=== PATIENT | female | born 1990 | race Caucasian/White ===

== ENCOUNTER 2018-05-13 12:21 | Emergency (ER) | payer OTHER ==
[~2018-05-13] VITALS: Ht 170.1 cm; Wt 67.1 kg
[~2018-05-13 12:21] MED LIST: ANAPROX DS550 MG PO; ATIVAN0.5 MG PO; ATIVAN1 MG PO; BACTRIM PED152.22 ML PO; CIPRO500 MG PO; CIPROFLOXACIN500 MG PO; CLINDAMYCIN HC300 MG PO; FLINTSTONES1 CTB PO; FURADANTIN25 MG/5 ML PO; MOTRIN CHI100 MG/5 M PO; MOTRIN CHI100 MG/51 PO; MOTRIN800 MG PO; Miralax Powder255 GM PO; Motrin,Rufen800 MG PO; NKHM; PRENATAL1 TA2 PO; TYLENOL W/CODE480 ML PO; VICODIN 5/500 505 MG PO; ZANTAC 150150 MG PO; ZANTAC15 MG/ML PO; ZOFRAN ODT4 MG SL; ZOFRAN4 MG PO; ZOLOFT50 MG PO; Zofran4 MG PO; [UNRECOGNIZED DRUG - CODE] PO; [UNRECOGNIZED DRUG - OTHER] PO
[2018-05-13 12:40] LABS: BILIRUBIN 1+ (NEGATIVE); BLOOD TRACE-INTACT (NEGATIVE); CLARITY SL CLOUDY (CLEAR); COLOR YELLOW (YELLOW); GLUCOSE NEGATIVE (NEGATIVE); KETONE NEGATIVE (NEGATIVE); LEUKO ESTERASE TRACE (NEGATIVE); NITRITE NEGATIVE (NEGATIVE); SPECIFIC GRAVITY 1.025 (1.005-1.030)
[2018-05-13 12:55] LABS: BACTERIA 1+; EPITHELIAL CELLS 21-30; MUCOUS 1+; WBC 16-20 wbc/hpf (0-5)
[2018-05-13 13:05] LABS: BASO % 0.3 % (0.0-1.0); EOS # 0.2 10*3/uL (0.0-0.4); EOS % 3.2 % (1.0-4.0); HEMOGLOBIN 14.7 g/dl (12.0-16.0); LYMPH # 1.6 10*3/uL (1.3-4.4); LYMPH % 27.1 % (27.0-41.0); MEAN CELL VOLUME 87.7 fl (81.0-99.0); MEAN CORPUSCULAR HGB 28.7 pg (27.0-31.0); MEAN CORPUSCULAR HGB CONC 32.7 g/dl (33.0-37.0); MEAN PLATELET VOLUME 10.4 fl (9.6-12.3); MONO # 0.4 10*3/uL (0.1-1.0); MONO % 6.6 % (3.0-9.0); NEUT # 3.7 10*3/uL (2.3-7.9); NEUT % 62.6 % (47.0-73.0); PLATELET COUNT AUTOMATED 165 10*3/uL (130-400); RED BLOOD COUNT 5.13 10*6/uL (4.10-5.10); RED CELL DISTRI WIDTH 12.3 % (0-14.5)
[2018-05-13 13:21] LABS: ALBUMIN 4.5 gm/dl (3.1-4.5); ALKALINE PHOSPHATASE 85 U/L (45-117); BUN 7 mg/dl (7-24); CHLORIDE 106 mmol/L (98-107); CREATININE 0.88 mg/dL (0.55-1.02); LIPASE 131 U/L (73-393); POTASSIUM 3.8 mmol/L (3.5-5.1); SGOT/AST 12 IU/L (3-35); SGPT/ALT 15 U/L (12-78); SODIUM 140 mmol/L (136-145); TOTAL PROTEIN 7.7 gm/dL (6.4-8.2)
[2018-05-13] MEDS ORDERED: LOMOTIL 2.5-0.1 EACH PO (14:31)
== END 2018-05-13 14:35 | disposition home or self-care (01) ==
LOC: ED 12:21
PROVIDERS: Nurse Practitioner Family
DX: B34.9 Viral infection, unspecified (principal); Z88.0 Allergy status to penicillin; Z88.1 Allergy status to other antibiotic agents

== ENCOUNTER 2018-12-20 18:52 | Emergency (ER) | payer SELFPAY ==
[~2018-12-20] VITALS: Ht 170.1 cm; Wt 68.0 kg
[~2018-12-20 18:52] MED LIST changes: +LOMOTIL 2.5-0.1 EACH PO
[2018-12-20 19:35] LABS: BILIRUBIN NEGATIVE (NEGATIVE); BLOOD NEGATIVE (NEGATIVE); CLARITY CLEAR (CLEAR); COLOR YELLOW (YELLOW); GLUCOSE NEGATIVE (NEGATIVE); KETONE TRACE (NEGATIVE); LEUKO ESTERASE NEGATIVE (NEGATIVE); NITRITE NEGATIVE (NEGATIVE); SPECIFIC GRAVITY 1.015 (1.005-1.030); UROBILINOGEN 0.2 E.U./dl (0.2-1.0)
[2018-12-20 19:42] LABS: BASO % 0.3 % (0.0-1.0); EOS # 0.1 10*3/uL (0.0-0.4); EOS % 0.9 % (1.0-4.0); HEMATOCRIT 43.1 % (37.0-47.0); HEMOGLOBIN 14.3 g/dl (12.0-16.0); LYMPH # 0.4 10*3/uL (1.3-4.4); LYMPH % 6.2 % (27.0-41.0); MEAN CELL VOLUME 87.6 fl (81.0-99.0); MEAN CORPUSCULAR HGB 29.1 pg (27.0-31.0); MEAN CORPUSCULAR HGB CONC 33.2 g/dl (33.0-37.0); MEAN PLATELET VOLUME 9.8 fl (9.6-12.3); MONO # 0.5 10*3/uL (0.1-1.0); MONO % 7.8 % (3.0-9.0); NEUT # 5.5 10*3/uL (2.3-7.9); NEUT % 84.3 % (47.0-73.0); PLATELET COUNT AUTOMATED 167 10*3/uL (130-400); RED BLOOD COUNT 4.92 10*6/uL (4.10-5.10); RED CELL DISTRI WIDTH 12.2 % (0-14.5); WHITE BLOOD COUNT 6.5 10*3/uL (4.8-10.8)
[2018-12-20 19:52] LABS: WBC 0-2 wbc/hpf (0-5)
[2018-12-20 19:53] LABS: BACTERIA 1+; MUCOUS 2+
[2018-12-20 20:00] LABS: ALKALINE PHOSPHATASE 82 U/L (45-117); BUN 9 mg/dl (7-24); CHLORIDE 107 mmol/L (98-107); POTASSIUM 3.9 mmol/L (3.5-5.1); SGOT/AST 32 IU/L (3-35); SGPT/ALT 31 U/L (12-78); SODIUM 140 mmol/L (136-145); TOTAL PROTEIN 7.5 gm/dL (6.4-8.2)
[2018-12-20] MEDS ORDERED: TESSALON PERLE100 MG PO (20:44)
[2018-12-20] MEDS ORDERED: ZITHROMAX200 MG/51 PO (20:44)
== END 2018-12-20 20:49 | disposition home or self-care (01) ==
LOC: ED 18:52
PROVIDERS: Nurse Practitioner Family
DX: J18.1 Lobar pneumonia, unspecified organism (principal); Z88.0 Allergy status to penicillin; Z88.1 Allergy status to other antibiotic agents; Z79.2 Long term (current) use of antibiotics; Z79.899 Other long term (current) drug therapy

== ENCOUNTER 2018-12-22 16:35 | Inpatient (IN) | payer SELFPAY ==
[~2018-12-22] VITALS: Ht 170.1 cm; Wt 70.8 kg
--- NOTE | ~2018-12-22 | PR ---
[place], [place] PROGRESS NOTE NAME: [id number] UNIT #: [id number] ROOM: 529 DOCTOR: TRISTEN MONGE MD BIRTHDATE: [birth year] DOS: SUBJECTIVE: The patient continues to complain of severe headaches this morning. Denies having any chest pains or palpitations, fever has subsided. She has been afebrile for the last 24 hours. OBJECTIVE: VITAL SIGNS: Blood pressure is 106/55, pulse of 96, respirations 17, temperature 98.8. LUNGS: Clear. HEART: Regular. ABDOMEN: Soft. EXTREMITIES: Without any edema. LABORATORY DATA: BMP: Glucose 97, BUN 5, creatinine 0.65, sodium 143, potassium 3.9, chloride 110, bicarbonate 26, calcium 7.8. WBC 1.9, hemoglobin 10.9, hematocrit 33.8, platelets 93. ASSESSMENT AND PLAN: 1. Pancytopenia noted with atypical lymphocytes. This most likely is viral in etiology. Consult Dr. Cole. 2. Pneumonia. A diagnosis of pneumonia on admission, which seems to have resolved. A CT of the chest does not show any pneumonia. 3. Headaches. Check CT of the head and CT of the sinuses. TRISTEN MONGE MD CM:PNTRANS [id number] TRISTEN MONGE MD 12/25/18 0347 interface
--- NOTE | ~2018-12-22 | WRIGHTHP ---
[place], [place] PATIENT HISTORY AND PHYSICAL EXAM NAME: LISA RUIZ [facility] #: [id number] UNIT #: [id number] ROOM: 529 DOCTOR: KASSIE HERNANDEZ MD BIRTHDATE: [birth year] DOS: 12/22/2018 HISTORY OF PRESENT ILLNESS: The patient is a 28-year-old female with a past medical history of: 1. Recent right lower lobe pneumonia, diagnosed at the Emergency Department with it recently. 2. History of GERD and esophagitis. 3. Generalized anxiety disorder. 4. Major depression, recurrent, moderate. The patient was recently diagnosed in the Emergency Department at [facility] for right lower lung pneumonia and was treated with antibiotics, but her fever, chills and shortness of breath have continued. The patient is actually feeling worse than before and was seen in my office today and I sent her to [facility] for more chest x-rays and an admission to the hospital and treatment with antibiotics. Chest x-ray showed right middle lobe pneumonia. No significant chest pain. No dizziness or fainting episodes. No other GI or urinary symptoms. REVIEW OF SYSTEMS: RESPIRATORY: Increasing shortness of breath. GASTROINTESTINAL: No nausea, vomiting, diarrhea, constipation. CARDIOVASCULAR: No chest pain or palpitations. FAMILY HISTORY: Noncontributory. HOME MEDICATIONS: The patient is taking azithromycin cough drops, clindamycin and Lomotil at home. PHYSICAL EXAMINATION: GENERAL: Alert, oriented. VITAL SIGNS: Temperature 99.4 degrees Fahrenheit, heart rate 96 beats per minute, breathing normally, blood pressure 115/63. HEENT AND NECK: Extraocular movements are intact. Sclerae are anicteric. Oral mucosa is moist and clean. No obvious facial weakness. Neck is supple without any lymphadenopathy. No thyromegaly. No JVD. No carotid arterial bruits. LUNGS: Clear to auscultation. No wheezing. No rhonchi. CARDIOVASCULAR SYSTEM: Heart rate is regular in rate and rhythm. S1 and S2 normally audible. No significant murmur or any other abnormal cardiac sounds. ABDOMEN: Soft, nontender. No obvious organomegaly. Bowel sounds are present. No obvious herniation. EXTREMITIES: Without significant cyanosis or edema. Warm to touch. CENTRAL NERVOUS SYSTEM: Alert and oriented x 3. Cranial nerves II-XII are intact. Speech is normal. The patient is able to move all extremities. Normal muscle strength. Deep tendon reflexes are equal on both sides. Plantars were downgoing. IMPRESSION AND PLAN: 1. The patient with recent chest x-ray showing right middle lobe pneumonia and consolidation with worsening of symptoms and failed outpatient treatment with [place], [place] PATIENT HISTORY AND PHYSICAL EXAM NAME: LISA RUIZ UNIT #: [id number] ROOM: 529 DOCTOR: KASSIE HERNANDEZ MD BIRTHDATE: [birth year] clindamycin and azithromycin. I will repeat the patient's chest x-ray in the morning and treat her with azithromycin and breathing treatments and Tylenol for fever. 2. Generalized anxiety disorder to be followed and treated as necessary. 3. Major depression, recurrent, asymptomatic at this time. 4. Gastroesophageal reflux disease and esophagitis, asymptomatic at this time. Plan to follow closely. KASSIE HERNANDEZ MD CM:HISPHYS:PATIENT HISTORY AND PHYSICAL EXAMINATION 09 38 KASSIE HERNANDEZ MD 12/22/181938 interface
--- NOTE | ~2018-12-22 | PR ---
[place], [place] PROGRESS NOTE NAME: LISA RUIZ UNIT #: [id number] ROOM: 529 DOCTOR: TRISTEN MONGE MD BIRTHDATE: [birth year] DOS: 12/23/2018 SUBJECTIVE: The patient is about the same, does not have much changes. She continues to have cough and appears quite edematous, especially her face. Eyes also quite puffy and red. OBJECTIVE: VITAL SIGNS: Blood pressures 84/44, pulse of 114, respirations 20, temperature 101.0. LUNGS: Diminished breath sounds, scattered rales. HEART: Regular. ABDOMEN: Obese, soft. EXTREMITIES: Without any edema. ASSESSMENT AND PLAN: 1. Bilateral pneumonia, possible gram negative. The patient is on IV antibiotics. We will maximize the regimen with broad spectrum antibiotics. 2. Neutropenia, possibly from underlying infection and respiratory virus panel and a CT of the chest will be ordered. Discussed with the patient's mom and the patient in detail. TRISTEN MONGE MD CM:PNTRANS [id number] TRISTEN MONGE MD 12/23/18 1619 interface
--- NOTE | ~2018-12-22 | CON ---
[place], [place] REPORT OF CONSULTATION [id number] UN[facility] #: [id number] ROOM: 529 DOCTOR: CLAY ALY MD BIRTHDATE: [birth year] DOS: 12/24/2018 PULMONARY CONSULTATION, EVALUATION AND MANAGEMENT CONSULTATION REQUESTED BY: Dr. Soraya Long. REASON FOR CONSULTATION: To assess the patient for the current leukopenia, fever and other respiratory symptoms. HISTORY OF PRESENT ILLNESS: This is 28-year-old white female patient who has been admitted to the hospital under the Dr. Abraham on 12/22/2018. The patient came into the Emergency Room on 12/20/2018 as well. She has been complaining of symptoms at this time with the headache, cough and others. She has been taking the medication as previously prescribed by the primary care physician outpatient for the upper respiratory tract symptoms. She has been prescribed Zithromax. The patient after initial assessment was sent home as well. The patient has been seen in the office of primary care physician for further followup with persistent, respiratory symptoms and advised for hospitalization. The patient admitted to the hospital on 12/22/2018. The patient stated symptoms of chills, not sure about the fever. The headache has been noted intermittent and did not respond to the oral Tylenol and responded to the treatment with a pain medication, which has been given intravenously at this time. She has not been noted any symptoms of chest pain. The cough has been noted moderate nonproductive. There were no symptoms of wheezing reported by the patient. Denies symptoms of chest pain at this time. REVIEW OF SYSTEMS: CONSTITUTIONAL: Fatigue and tiredness noted, fever at home and chills. EYES: Denies any burning, redness, discharge or diplopia. EARS, NOSE AND THROAT: Denies sore throat, hoarseness, otalgia, postnasal drainage or epistaxis. CARDIOVASCULAR: Denies angina pain, edema, pain of the lower extremities. GASTROINTESTINAL: The patient does have symptoms of nausea, vomiting a few days ago that has resolved and not present at this time. Denies symptoms of abdominal pain, hematemesis, melena, or hematochezia. GENITOURINARY: No dysuria, suprapubic pain, or hematuria. MUSCULOSKELETAL: No acute joint pain, redness, or tenderness. SKIN: No lesions or rashes. CENTRAL NERVOUS SYSTEM: Headache has been reported previously seemed to be better in the last 24 with current medications. Remaining systems were reviewed. They were noted all negative. PAST MEDICAL HISTORY: Known with history of: 1. Generalized anxiety disorder. 2. Major depression. 3. Gastroesophageal reflux disease. SOCIAL HISTORY: The patient is . Denies any history of alcohol use or any illicit drug use. She has small minimal amount of cigarette 1-2 cigarettes a day stating she has not been smoking any cigarettes for the past 3 weeks. [place], [place] REPORT OF CONSULTATION NAME: LISA RUIZ UNIT #: [id number] ROOM: 529 DOCTOR: CLAY ALY MD BIRTHDATE: [birth year] PAST SURGICAL HISTORY: Noted as no major surgeries. FAMILY HISTORY: Noncontributory to her illness. CURRENT MEDICATIONS: Administered was noted as use of meropenem and Zithromax, Advair, Toradol and bronchodilators. DRUG ALLERGIES: NOTED ALLERGY TO PENICILLINS AND AMOXICILLIN. PHYSICAL EXAMINATION: GENERAL: This is a 28-year-old female patient well-developed, well-nourished for age, height of 5 feet 6 inches, weight 156 pounds, BMI 24. VITAL SIGNS: For the patient was noted as temperature 101.8 degrees Fahrenheit and 101 degree Fahrenheit on admission, currently noted to be afebrile, respiratory rate of 17-20, heart rate 76 and noted 116 previously. Blood pressure 98/50-160/55. Pulse oxygen saturation was recorded as 95% saturation at rest on room air. HEENT: Examination shows head was atraumatic. Eyes: No icterus. NECK: Supple. CARDIOVASCULAR: S1, S2 was audible. LUNGS: The patient was noted without any crackle, rhonchi, or wheezing. ABDOMEN: Soft, flat, nontender, bowel sounds present. EXTREMITIES: Without edema. MUSCULOSKELETAL: Without acute deformities. CENTRAL NERVOUS SYSTEM: The patient's cranial nerves 2-12 intact. LABORATORY DATA: CBC on 12/20/2018 was noted as normal. The lactic acid on 12/20/2018 in emergency room also noted negative. Urinalysis the patient noted 1+ bacteria. CMP that was done on 12/20/2018 noted normal BUN, creatinine and LFTs all the labs were normal. Chest x-ray, the patient at that time, the patient was noted on 12/20/2018 was noted without any acute pulmonary infiltration. Strep culture for the patient was noted on 12/20/2018 as negative results. The CBC on 12/23/2016, WBC count 2.0, hemoglobin 11.6, hematocrit 35.4, platelet count 86,000. BMP at this time were noted normal BUN and creatinine. CT scan of chest does not show any acute pulmonary filtration completed yesterday. Chest x-ray was also noted negative for any acute abnormalities. CBC this morning: WBC count further decreased 1.9, hemoglobin 10.9, hematocrit 33.9, platelet count of 93,000, which were noted better from yesterday labs. CT scan of the head and the paranasal sinuses were all noted negative study. IMPRESSION: The patient who has been currently admitted to the hospital noted with symptoms of fever as an outpatient, most likely viral syndrome resulting leukopenia and thrombocytopenia. The atypical infection for this patient may be considered in the differential diagnosis. The patient does not have a known history of hemopoietic and/or family history of such disorder. Minimal tobacco use. The patient noted previously as well, which has been obtained by the patient. There were no findings were noted of COPD, bronchial asthma onset. However, the temperature curve was noted as normal. The patient remains on top [place], [place] REPORT OF CONSULTATION NAME: LISA RUIZ UNIT #: [id number] ROOM: 529 DO[facility] BIR[facility]: [birth year] of the list for the current abnormalities. PLAN OF MANAGEMENT: The patient has been ordered the respiratory isolation precaution because of neutropenia, which should suffice. Continue current antibiotic. The patient monitoring results. Order urine for legionella antigen as well and the strep antigen. Monitoring the overall status with the patient closely for the patient. No additional intervention will be necessary. NEREYDA for the patient was ordered for reassessment of the current leukopenia and thrombocytopenia. Ortiz virus and ESR was also ordered. Respiratory virus panel has been already ordered, which was pending. Obtain the influenza virus panel as well. Ordered sputum for Gram-stain and culture. The patient expectorates sputum. The Zithromax will be continued, atypical coverage. CLAY PERRY MD CM:CONSTR:REPORT OF CONSULTATION 1328 01/02/19 0821 interface
--- NOTE | ~2018-12-22 | PR ---
[place], [place] PROGRESS NOTE NAME: LISA RUIZ UNIT #: [id number] ROOM: 529 DOCTOR: KASSIE HERNANDEZ MD BIRTHDATE: [birth year] DOS: 12/26/2018 SUBJECTIVE: The patient is feeling about the same or slightly better. OBJECTIVE: VITAL SIGNS: Blood pressure 101/60, heart rate 70 beats per minute, breathing 16 times per minute, temperature of 98 degrees Fahrenheit. GENERAL APPEARANCE: The patient is alert and oriented x 3, in no visible distress. HEENT AND NECK: Exam within normal limits. CARDIOVASCULAR SYSTEM: Heart rate is regular in rate and rhythm. S1 and S2 normally audible. LUNGS: Clear to auscultation. ABDOMEN: Soft, nontender. No obvious organomegaly. Bowel sounds are present. EXTREMITIES: Without significant cyanosis or edema. IMPRESSION: 1. Influenza A with right middle lobe pneumonia, improving gradually and being followed by Phytopathology Teacher, Dr. Cole. 2. Elevation of AST and ALT to 337 and 291. Scan of the liver ordered. 3. Pancytopenia, leukopenia with white cell count of 2300, improving, probable viral etiology. Platelets down to 95,000, all improving. KASSIE HERNANDEZ MD CM:PNTRANS [id number] KASSIE HERNANDEZ MD 12/27/18 0551 interface
--- NOTE | ~2018-12-22 | PR ---
[place], [place] PROGRESS NOTE NAME: LISA RUIZ UNIT #: [id number] ROOM: 529 DOCTOR: VICKY MACE MD,CLAY BIRTHDATE: [birth year] DOS: 12/27/2018 SUBJECTIVE: The patient was noted comfortable at this time, resting in the bed without any acute new complaints. Marked resolution of the acute respiratory symptom was noted. At this time she was noted completely asymptomatic. OBJECTIVE: VITAL SIGNS: Normal temperature, respiratory rate 20, pulse rate 63, blood pressure 108/58. The pulse oxygen saturation recorded as normal. HEENT: No acute change. NECK: Supple. CARDIOVASCULAR: S1, S2 audible. LUNGS: The patient was noted clear of any wheezing or crackles at present time. ABDOMEN: Soft, nontender. Bowel sounds present. EXTREMITIES: No acute change. LABORATORY DATA: CBC this morning: WBC count 2.9, which is gradually improving. The platelet count was also noted with gradual improvement. IMPRESSION: 1. The patient with the progressive resolution improvement in acute influenza infection. 2. Leukopenia and thrombocytopenia, which was still noted, need to be further assessed the patient outpatient treatment. 3. Abnormal LFTs. The ultrasound of the right upper quadrant was done and that was noted as normal study without any acute abnormality. The hepatic or other viral serology of hepatitis A, B and C was done and noted negative. CLAY PERRY MD CM:PNTRANS 1220 [id number] CLAY MACE MD 01/02/19 0823 interface
--- NOTE | ~2018-12-22 | DS ---
[place], [place] DISCHARGE SUMMARY NAME: LISA RUIZ UNIT #: [id number] ROOM: 529 DOCTOR: KASSIE HERNANDEZ MD BIRTHDATE: [birth year] DOS: 12/27/2018 A 28-year old female with a discharge diagnoses of: 1. Right middle lobe viral pneumonia. 2. Pancytopenia including leukopenia and thrombocytopenia from viral infection. 3. Influenza A positive. 4. Hepatitis with elevation of AST and ALT from virus and viral infection. Liver enzymes are improving. 5. History of gastroesophageal reflux disease and esophagitis. 6. Generalized anxiety disorder. 7. Major depression, recurrent, moderate. The patient presented with increased shortness of breath, feeling weak and not improving with outpatient treatment with antibiotics for more than a week. Chest x-ray performed in the Emergency Room had showed right middle lobe pneumonia. Since, the patient not improving and getting weaker and feeling worse every day. She was admitted for pneumonia and she was treated with antibiotics and consult was obtained with Dr. Cole, the sewing machine repairer helper. The patient has gradually improved and has been cleared by Dr. Cole for discharge to home today and I will see him in the office later this week. 1. Right middle lobe pneumonia, apparently viral showing improvement with treatment and on followup chest x-ray. 2. Influenza A positive. Isolation precautions were taken. The patient is feeling better now clinically. 3. Leukopenia and thrombocytopenia secondary to viral infection, now improving. 4. Hepatitis and liver enzyme elevation is improving now apparently from viral hepatitis. 5. History of major depression, recurrent, to be followed as an outpatient. 6. GERD and esophagitis, asymptomatic at this time. Will be followed as an outpatient. DISCHARGE MANAGEMENT: Tylenol 1000 mg every 8 hours as needed. Antibiotics to be prescribed by Dr. Cole if he thinks necessary at the time of discharge. Lomotil as needed for chronic recurrent diarrhea. Follow up at the office with me this week. [place], [place] DISCHARGE SUMMARY NAME: LISA RUIZ UNIT #: [id number] ROOM: 529 DOCTOR: KASSIE HERNANDEZ MD BIRTHDATE: [birth year] KASSIE HERNANDEZ MD CM:BERENICE [id number] KASSIE HERNANDEZ MD 12/27/18 1136 interface
--- NOTE | ~2018-12-22 | PR ---
[place], [place] PROGRESS NOTE NAME: LISA RUIZ UNIT #: [id number] ROOM: 529 DOCTOR: CLAY ALY MD BIRTHDATE: [birth year] DOS: 12/25/2018 PULMONARY PROGRESS NOTE SUBJECTIVE: The patient has been doing well. Improvement in the headache was noted. She has been retested for the influenza infection, was noted positive influenza A infection with the nasal washings. She has not been noted with symptoms of fever or chills. The temperature currently were noted completely normal. General weakness and fatigue were noted partially decreased with decreased debility. There were no symptoms of dysuria or hematuria. Denies symptoms of diplopia. Denies symptoms of nausea or vomiting. The remaining systems were reviewed. They were noted all negative. PHYSICAL EXAMINATION: VITAL SIGNS: Normal temperature, respiratory rate 20, heart rate 81, blood pressure 100/54. Pulse ox saturation on room air 96% saturation. HEENT: Shows head was atraumatic. Eyes nonicterus. NECK: Supple. CARDIOVASCULAR SYSTEM: S1, S2 audible. LUNGS: Clear without any wheezing or crackles. ABDOMEN: Soft, nontender. Bowel sounds present. EXTREMITIES: Without any acute edema. MUSCULOSKELETAL: Without any acute deformities. CENTRAL NERVOUS SYSTEM: The patient's cranial nerves 2-12 intact. LABORATORY DATA: The patient's CBC this morning; WBC count 1.8, hemoglobin 11, platelet count was 84,000. IMPRESSION: 1. Stable leukopenia was noted with thrombocytopenia related to influenza A infection. 2. Influenza A symptoms with respiratory manifestation, previous gastrointestinal manifestation prior to admission to the hospital as well was noted. PLAN OF MANAGEMENT: Discontinue the meropenem. Continuation of the Zithromax and Tamiflu, which was started yesterday. Bronchodilator, other symptomatic management of the symptom. Potential discharge him in the morning depends on further improvement in the respiratory status would be considered. [place], [place] PROGRESS NOTE NAME: LISA RUIZ UNIT #: [id number] ROOM: 529 DOCTOR: CLAY ALY MD BIRTHDATE: [birth year] CLAY PERRY MD CM:PNTRANS 1158 CLAY MACE MD 12/26/1840 interface
--- NOTE | ~2018-12-22 | PR ---
[place], [place] PROGRESS NOTE NAME: LISA RUIZ UNIT #: [id number] ROOM: 529 DOCTOR: VICKY MACE MD,CLAY BIRTHDATE: [birth year] DOS: 12/26/2018 PULMONARY PROGRESS NOTE SUBJECTIVE: The patient was noted comfortable at this time, resting on the bed. She stated that she has been noted with vomiting intermittently last night. She denies symptoms of diarrhea. The respiratory symptoms have been resolving. The headache resolved. No symptoms of fever or chills. REVIEW OF SYSTEMS: There were no symptoms of dysuria, suprapubic pain, or hematuria. Denies symptoms of diplopia. OBJECTIVE: VITAL SIGNS: For the patient recorded normal temperature, respiratory rate 20, heart rate 87, blood pressure 80/62. The pulse oxygen saturation, rest on room air was 95% saturation. HEENT: Examination shows head was atraumatic. Eyes nonicterus. NECK: Supple. CARDIOVASCULAR: S1, S2 is audible. LUNGS: Noted without any wheeze or crackle at this time. ABDOMEN: Noted soft, flat, nontender, bowel sounds present. EXTREMITIES: Without any acute edema. MUSCULOSKELETAL: The patient without any acute deformities. CENTRAL NERVOUS SYSTEM: Intact. SKIN: No lesions or rashes. IMPRESSION: 1. Currently noted stable at this time with resolving influenza infection with respiratory manifestation, symptoms of vomiting and nausea. Etiology unclear. 2. Leukopenia related to the viral infection as well. PLAN OF MANAGEMENT: 1. Ordered the CMP to assess electrolyte because of vomiting reported. She was also noted with abnormal liver functions tests may be related to current viral etiology of other problem to be further explored. 2. Headache and other symptoms. 3. Leukopenia as well with thrombocytopenia. PLAN OF MANAGEMENT: Continue current antibiotic treatment. The labs, which obtained today, which were ordered after assessment. CBC was pending; however the LFTs are noted with worsening of the AST and ALT. Ultrasound of the right upper quadrant will be obtained for current assessment of the abnormal LFTs to exclude the other problem including gallbladder with current nausea and vomiting. Other therapy, plan of management. Usual care. Supportive plan of management. [place], [place] PROGRESS NOTE NAME: LISA RUIZ UNIT #: [id number] ROOM: 529 DOCTOR: CLAY ALY MD BIRTHDATE: [birth year] CLAY PERRY MD CM:PNTRANS [id number] CLAY MACE MD 12/26/18 2333 interface
--- NOTE | ~2018-12-22 | PR ---
[place], [place] PROGRESS NOTE [id number] #: [id number] ROOM: 529 DOCTOR: KASSIE HERNANDEZ MD BIRTHDATE: [birth year] DOS: 12/25/2018 A 28-year-old female, presently with leukopenia, pancytopenia and atypical lymphocytes possibly from viral infection. The patient is positive for influenza A and in isolation. Right middle lobe pneumonia, improving with treatment. Acute exacerbation of asthma, improving with treatment. Viral pneumonia. KASSIE HERNANDEZ MD CM:PNTRANS [phone] KASSIE HERNANDEZ MD 12/29/18 2015 interface
[~2018-12-22 16:35] MED LIST changes: +TESSALON PERLE100 MG PO; +ZITHROMAX200 MG/51 PO
[2018-12-22 16:45] VITALS: BP 115/63
--- NOTE | 2018-12-22 16:45 | NUR ---
A 28, admitted to , under the services of Dr. MARY VARGHESE,KASSIE Metz with a diagnosis of PNEUMONIA, SOB. Chief complaint is SOB, PNEUMONIA S/S. Patient arrived via wheel chair from [place]. Monitor applied. Initial assessment completed. Vital signs taken and recorded. DR. MARY VARGHESE,KASSIE Metz notified of admission to the unit. Orders received. See assessment for past medical history, medications and allergies. Patient and/or family oriented to unit. [facility] visitation policy reviewed. Clothing/patient valuable form completed. DAVID GUILLEN
[2018-12-22 20:00] VITALS: BP 84/44
[2018-12-23] VITALS: BP 96/48
[2018-12-23 06:42] LABS: BASO % 0.5 % (0.0-1.0); EOS % 0.5 % (1.0-4.0); HEMATOCRIT 35.4 % (37.0-47.0); HEMOGLOBIN 11.6 g/dl (12.0-16.0); LYMPH # 0.6 10*3/uL (1.3-4.4); LYMPH % 29.6 % (27.0-41.0); MEAN CELL VOLUME 89.2 fl (81.0-99.0); MEAN CORPUSCULAR HGB 29.2 pg (27.0-31.0); MEAN CORPUSCULAR HGB CONC 32.8 g/dl (33.0-37.0); MEAN PLATELET VOLUME 10.3 fl (9.6-12.3); MONO # 0.2 10*3/uL (0.1-1.0); MONO % 10.3 % (3.0-9.0); NEUT # 1.2 10*3/uL (2.3-7.9); NEUT % 59.1 % (47.0-73.0); PLATELET COUNT AUTOMATED 86 10*3/uL (130-400); RED BLOOD COUNT 3.97 10*6/uL (4.10-5.10); RED CELL DISTRI WIDTH 12.3 % (0-14.5)
[2018-12-23 06:54] LABS: BUN 7 mg/dl (7-24); CHLORIDE 106 mmol/L (98-107); CREATININE 0.83 mg/dL (0.55-1.02); POTASSIUM 3.7 mmol/L (3.5-5.1); SODIUM 140 mmol/L (136-145)
[2018-12-23 08:00] VITALS: BP 97/45
--- NOTE | 2018-12-23 08:55 | NUR ---
Dr. Long in and examined pt.
--- NOTE | 2018-12-23 09:06 | NUR ---
Medicated with dilaudid iv per order. Pt had c/o headache.
--- NOTE | 2018-12-23 09:12 | NUR ---
Respiratory virus panel obtained and sent to lab.
--- NOTE | 2018-12-23 09:45 | NUR ---
States that dilaudid was effective for headache. States it made her drowsy.
--- NOTE | 2018-12-23 11:05 | NUR ---
Pt taken off floor for ct scan.
[2018-12-23 12:00] VITALS: BP 94/36
--- NOTE | 2018-12-23 18:32 | NUR ---
Pt complaining of headache. I had offered pt tylenol earlier for headache but she said it was mild and she did not want to take anything at that time. Now pt states her headache is severe, states when she coughs it is pounding on her temples. I again offered pt tylenol but she states tylenol has not been effective for headache. States she doesn't have an easy time taking pills either states she would prefer liquid med or chewable tablets. I spoke with Dr. Hung regarding pt statements. Reviewed Ct of chest and new orders received.
--- NOTE | 2018-12-23 19:30 | NUR ---
PT AWAKE AND RESTING IN BED. BEDSIDE REPORT RECIEVED FROM LUBA MIRAMONTES. PT STATES THAT SHE HAS A HEADACHE BUT THAT SHE HAS HAD IT FOR A DAY OR SO AND NOTHING HAS HELPED. CALL LIGHT WITHIN REACH, WILL CONTINUE TO MONITOR.
[2018-12-23 20:00] VITALS: BP 80/31
[2018-12-24] VITALS: BP 114/64
[2018-12-24 06:25] LABS: HEMATOCRIT 33.8 % (37.0-47.0); HEMOGLOBIN 10.9 g/dl (12.0-16.0); MEAN CELL VOLUME 88.3 fl (81.0-99.0); MEAN CORPUSCULAR HGB 28.5 pg (27.0-31.0); MEAN CORPUSCULAR HGB CONC 32.2 g/dl (33.0-37.0); MEAN PLATELET VOLUME 10.4 fl (9.6-12.3); PLATELET COUNT AUTOMATED 93 10*3/uL (130-400); RED BLOOD COUNT 3.83 10*6/uL (4.10-5.10); RED CELL DISTRI WIDTH 12.4 % (0-14.5)
[2018-12-24 06:34] LABS: BUN 5 mg/dl (7-24); CHLORIDE 110 mmol/L (98-107); POTASSIUM 3.9 mmol/L (3.5-5.1); SODIUM 143 mmol/L (136-145)
[2018-12-24 06:35] LABS: CREATININE 0.65 mg/dL (0.55-1.02)
[2018-12-24 06:37] LABS: WHITE BLOOD COUNT 1.9 10*3/uL (4.8-10.8)
--- NOTE | 2018-12-24 06:42 | NUR ---
CALL WAS MADE TO DR MONGE TO INFORM HER OF A CRITICAL WBC OF 1.9. ORDERS RECIEVED TO OBTAIN ABSOLUTE NEUTROPHIL COUNT AND NEUTROPENIC PRECAUTIONS.
[2018-12-24 07:00] LABS: ATYPICAL LYMPHS 5 % (0-0); PLATELET SUFFICIENCY LOW (NORMAL); TOTAL CELLS COUNTED 100 #CELLS
[2018-12-24 08:00] VITALS: BP 106/55
--- NOTE | 2018-12-24 08:15 | NUR ---
DR PERRY CALLED FOR NEW CONSULT. DR. MONGE SPOKE WITH DR PERRY AT THIS TIME.
--- NOTE | 2018-12-24 08:25 | NUR ---
DR MONGE AT BEDSIDE. PATIENT AWAKE & ALERT ON ROOM AIR. DENIES CP. DENIES SOB. SEE ASSESSMENT. C/O HEADACHE AT THIS TIME - PAIN MEDICATION DISCUSSED WITH / MARIPOSA. AWAITING NEW ORDERS.
--- NOTE | 2018-12-24 09:10 | NUR ---
DILAUDID 0.25 MG ADMINISTERED FOR HEADACHE PRESCRIBED. WILL MONITOR FOR EFFECTIVENESS.
--- NOTE | 2018-12-24 09:23 | NUR ---
PT TRANSPORTED TO CT SCAN.
--- NOTE | 2018-12-24 09:40 | NUR ---
PATIENT STATES THAT HEADACHE IS A LITTLE BETTER AT THIS TIME. WILL MONITOR.
--- NOTE | 2018-12-24 11:31 | NUR ---
Shift chart check completed.
[2018-12-24 12:00] VITALS: BP 98/56
--- NOTE | 2018-12-24 13:35 | NUR ---
PATIENT ADMINISTERED TORODOL PRESCRIBED. PATIENT STATES THAT HEADACHE IS 7/10 ON 0/10 SCALE. WILL MONITOR EFFECTIVENESS.
--- NOTE | 2018-12-24 14:05 | NUR ---
PATIENT STATES THAT HEADACHE IS BETTER AFTER ADMINISTRATION OF TORODOL. WILL MONITOR.
[2018-12-24 16:00] VITALS: BP 101/54
--- NOTE | 2018-12-24 19:00 | NUR ---
PT AWAKE IN BED DURING BEDSIDE SHIFT REPORT. PT C/O IV SITE BURNING. NO SWELLING AND/OR REDNESS NOTED. IV ATB'S INFUSING AT THIS TIME. PT ADVISED THAT ATB INFUSTION RATE WAS DECREASED ALREADY. OFFERED TO OBTAIN NEW IV SITE. PT DECLINES. PT ADVISED TO CALL THIS NURSE IF BURNING DOES NOT SUBSIDE. CALL LIGHT IN REACH.
[2018-12-24 20:00] VITALS: BP 100/60
[2018-12-25] VITALS: BP 103/59
--- NOTE | 2018-12-25 00:20 | NUR ---
ENTERED PT ROOM ON HOURLY ROUNDS AND FOUND PT VOMITING IN TRASH CAN. PT STATES SHE WOKE UP NAUSEAOUS. DR. MONGE PHONED AND REPORTED N/V AND NEED FOR ANTI EMETIC. T.O. RCVD FOR ZOFRAN 8MG EVERY 6 HRS PRN N/V. CONTINUE IVF.
--- NOTE | 2018-12-25 00:53 | NUR ---
PT MEDICATED W/ZOFRAN IVP FOR N/V. PT RESTING QUIETLY IN BED AT THIS TIME.
--- NOTE | 2018-12-25 02:21 | NUR ---
PT STATES SHE NO LONGER HAS N/V. PT REFUSING TORADOL AT THIS TIME D/T NO LONGER HAS A H/A OR ANY OTHER TYPE OF PAIN. WILL CONTINUE TO MONITOR.
[2018-12-25 06:50] LABS: HEMATOCRIT 34.3 % (37.0-47.0); MEAN CELL VOLUME 89.3 fl (81.0-99.0); MEAN CORPUSCULAR HGB 28.6 pg (27.0-31.0); MEAN CORPUSCULAR HGB CONC 32.1 g/dl (33.0-37.0); MEAN PLATELET VOLUME 10.5 fl (9.6-12.3); PLATELET COUNT AUTOMATED 84 10*3/uL (130-400); RED BLOOD COUNT 3.84 10*6/uL (4.10-5.10); RED CELL DISTRI WIDTH 12.7 % (0-14.5)
[2018-12-25 07:00] LABS: WHITE BLOOD COUNT 1.8 10*3/uL (4.8-10.8)
--- NOTE | 2018-12-25 07:05 | NUR ---
DR. MONGE NOTIFIED OF CRITICAL WBC OF 1.8.
[2018-12-25 07:13] LABS: ALBUMIN 2.8 gm/dl (3.1-4.5); ALKALINE PHOSPHATASE 61 U/L (45-117); BUN 6 mg/dl (7-24); CHLORIDE 109 mmol/L (98-107); CREATININE 0.65 mg/dL (0.55-1.02); POTASSIUM 4.4 mmol/L (3.5-5.1); SGOT/AST 176 IU/L (3-35); SGPT/ALT 142 U/L (12-78); SODIUM 143 mmol/L (136-145); TOTAL PROTEIN 5.6 gm/dL (6.4-8.2)
[2018-12-25 08:00] VITALS: BP 100/54
--- NOTE | 2018-12-25 08:08 | NUR ---
SPEECH PATHOLOGY Nursing screen completed. Speech pathology services are not indicated at this time. This dept. will remain available should future needs arise. KATHERINE VICKERS [facility] FREE[employer]ER OPERATOR
[2018-12-25 08:10] LABS: TOTAL CELLS COUNTED 100 #CELLS
[2018-12-25 08:11] LABS: PLATELET SUFFICIENCY LOW (NORMAL)
--- NOTE | 2018-12-25 08:25 | NUR ---
DR PERRY IN TO SEE PATIENT.
--- NOTE | 2018-12-25 08:50 | NUR ---
DILAUDID ADMINISTERED PRESCRIBED. PATIENT STATES THAT HEADACHE IS 4/10 ON 0/10 SCALE AT THIS TIME. WILL MONITOR FOR EFFECTIVENESS.
--- NOTE | 2018-12-25 09:50 | NUR ---
PATIENT STATES THAT HEADACHE IS GONE AT THIS TIME AFTER ADMINISTRATION OF MORPHINE. WILL MONITOR.
--- NOTE | 2018-12-25 10:30 | NUR ---
Meters Superintendent in to talk to patient. Patient states lives at home with her mother. There are 0 steps in the home. Physician: Dr. Kavin Abraham Pharmacy: [facility] Home health services: none Patient's level of ADLs: INDEPENDENT Patient has working utilities: yes DME: none Follow-up physician's appointment after d/c: she prefers to make her own follow up appt after discharge Does patient want to access PORTAL?: no Discharge plan discussed with patient. She lives at home with her mother. She is independent in her ADLs and ambulation. Discussed home health care service and she denies any home needs at this time. When medically stable she will be discharged to home. FREDERICK KRISHNAMURTHY
--- NOTE | 2018-12-25 13:23 | NUR ---
PATIENT C/O NAUSEA BUT NO VOMITING AT THIS TIME. ZOFRAN ADMINISTERED PRESCRIBED. WILL MONITOR FOR EFFECTIVENESS.
--- NOTE | 2018-12-25 13:53 | NUR ---
PATIENT RESTING IN BED AT THIS TIME. PT STATES NAUSEA HAS SUBSIDED AT THIS TIME. WILL CONTINUE TO MONITOR.
[2018-12-25 16:00] VITALS: BP 118/56
--- NOTE | 2018-12-25 19:00 | NUR ---
PT AWAKE IN BED DURING BEDSIDE SHIFT REPORT. C/O NAUSEA. IVF INFUSING. CALL LIGHT IN REACH.
[2018-12-25 20:00] VITALS: BP 97/62
--- NOTE | 2018-12-25 21:30 | NUR ---
PT VOMITED YELLOW STOMACH BILE. MEDICATED W/ZOFRAN IVP. SCHEDULED DILAUDID HELD D/T N/V. WILL MONITOR. CALL LIGHT IN REACH.
--- NOTE | 2018-12-25 22:30 | NUR ---
PT STATES THAT SHE STILL FEELS NAUSEOUS BUT NO FURTHER EMESIS. GINGERALE AND ICE CHIPS OFFERED AND ACCEPTED. CALL LIGHT IN REACH.
[2018-12-26] VITALS: BP 100/60
--- NOTE | 2018-12-26 03:51 | NUR ---
Patient sleeping. Respirations relaxed and easy. Siderails up . Wheelsandrines on. SK[place] GRANDE
--- NOTE | 2018-12-26 04:01 | NUR ---
24 HR chart check completed.
--- NOTE | 2018-12-26 05:58 | NUR ---
NO FURTHER C/O N/V. PT DENIES BODY ACHES OR NEED FOR PRN PAIN MED AT THIS TIME. PT ENCOURAGED TO REST AND INCREASE PO INTAKE. PT ACKNOWLEDGES. CALL LIGHT IN REACH.
--- NOTE | 2018-12-26 07:36 | NUR ---
PRN ZOFRAN GIVEN FOR COMPLAINTS OF NAUSEA. WILL MONITOR FOR EFFECTIVENESS.
[2018-12-26 08:00] VITALS: BP 108/62
--- NOTE | 2018-12-26 08:30 | NUR ---
RE-EVALAUTED AT THIS TIME. PT STATES THAT THE PRN ZOFRAN DID HELP WITH THE NAUSEA. MEDICATION EFFECTIVE.
--- NOTE | 2018-12-26 09:00 | NUR ---
Pilot Can Router in to see patient. No new needs or request at this time. She denies any home needs. When medically stable she will be discharged to home.
[2018-12-26 09:11] LABS: ADENOVIRUS Negative (Negative); INFLUENZA A Positive (Negative); INFLUENZA B Negative (Negative); METAPNEUMOVIRUS Negative (Negative); PARAINFLUENZA 1 Negative (Negative); PARAINFLUENZA 2 Negative (Negative); PARAINFLUENZA 3 Negative (Negative); RHINOVIRUS Negative (Negative); RSV A Negative (Negative); RSV B Negative (Negative)
[2018-12-26 10:15] LABS: HEMATOCRIT 36.8 % (37.0-47.0); HEMOGLOBIN 11.5 g/dl (12.0-16.0); MEAN CELL VOLUME 89.8 fl (81.0-99.0); MEAN CORPUSCULAR HGB CONC 31.3 g/dl (33.0-37.0); MEAN PLATELET VOLUME 10.5 fl (9.6-12.3); PLATELET COUNT AUTOMATED 95 10*3/uL (130-400); RED CELL DISTRI WIDTH 12.1 % (0-14.5); WHITE BLOOD COUNT 2.3 10*3/uL (4.8-10.8)
[2018-12-26 10:24] LABS: ALKALINE PHOSPHATASE 67 U/L (45-117); BUN 6 mg/dl (7-24); CHLORIDE 108 mmol/L (98-107); CREATININE 0.73 mg/dL (0.55-1.02); POTASSIUM 4.1 mmol/L (3.5-5.1); SGOT/AST 341 IU/L (3-35); SGPT/ALT 283 U/L (12-78); SODIUM 141 mmol/L (136-145)
--- NOTE | 2018-12-26 11:05 | NUR ---
SPOKE WITH DR PERRY ABOUT THE PT. ORDERED US ABDOMEN AND HEPATIC PROFILE RECEIVED. DR PERRY REQUESTS THAT DR HERNANDEZ BE UPDATED ON THESE ORDERS.
[2018-12-26 11:06] LABS: BURR CELLS FEW; PLATELET SUFFICIENCY LOW (NORMAL); TOTAL CELLS COUNTED 100 #CELLS
[2018-12-26 11:07] LABS: OVALOCYTES FEW
--- NOTE | 2018-12-26 11:20 | NUR ---
SPOKE WITH DR HERNANDEZ AND UPDATED ON THE ORDERS DR PERRY PLACED. ORDERES FOR REPEAT HEPATIC PROFILE IN THE MORNING RECEIVED.
[2018-12-26 11:22] LABS: ALBUMIN 3.1 gm/dl (3.1-4.5); BILIRUBIN, DIRECT 0.2 mg/dL (0.0-0.2)
[2018-12-26 16:00] VITALS: BP 101/60
--- NOTE | 2018-12-26 16:44 | NUR ---
MEDICATED WITH PRN IV ZOFRAN FOR NAUSEA. PATIENT IS ABLE TO EAT LATE LUNCH, NO VOMITING.
--- NOTE | 2018-12-26 17:56 | NUR ---
PRN IV ZOFRAN SOMEWHAT EFFECTIVE, PER PATIENT.
--- NOTE | 2018-12-26 19:00 | NUR ---
PT AWAKE IN BED DURING BEDSIDE SHIFT REPORT. PT STATES SHE IS FEELING BETTER NOW. DENIES N/V. ENCOURAGED FLUID INTAKE. PT ACKNOWLEDGES. CALL LIGHT IN REACH.
[2018-12-27] VITALS: BP 111/66
--- NOTE | 2018-12-27 02:15 | NUR ---
24 HR chart check completed.
--- NOTE | 2018-12-27 03:04 | NUR ---
Patient sleeping. Respirations relaxed and easy. Siderails up . Wheelsandrines on. SK[place] GRANDE
[2018-12-27 06:13] LABS: HEMATOCRIT 35.5 % (37.0-47.0); HEMOGLOBIN 11.3 g/dl (12.0-16.0); MEAN CORPUSCULAR HGB 28.3 pg (27.0-31.0); MEAN CORPUSCULAR HGB CONC 31.8 g/dl (33.0-37.0); MEAN PLATELET VOLUME 10.5 fl (9.6-12.3); PLATELET COUNT AUTOMATED 90 10*3/uL (130-400); RED BLOOD COUNT 3.99 10*6/uL (4.10-5.10); RED CELL DISTRI WIDTH 11.9 % (0-14.5); WHITE BLOOD COUNT 2.9 10*3/uL (4.8-10.8)
[2018-12-27 06:39] LABS: ALBUMIN 2.8 gm/dl (3.1-4.5); ALKALINE PHOSPHATASE 60 U/L (45-117); BUN 6 mg/dl (7-24); CHLORIDE 110 mmol/L (98-107); CREATININE 0.67 mg/dL (0.55-1.02); POTASSIUM 3.9 mmol/L (3.5-5.1); SGOT/AST 215 IU/L (3-35); SGPT/ALT 244 U/L (12-78); SODIUM 144 mmol/L (136-145); TOTAL PROTEIN 5.8 gm/dL (6.4-8.2)
[2018-12-27 06:41] LABS: ALBUMIN 2.9 gm/dl (3.1-4.5); BILIRUBIN, DIRECT 0.1 mg/dL (0.0-0.2); TOTAL PROTEIN 5.8 gm/dL (6.4-8.2)
[2018-12-27 07:38] LABS: TOTAL CELLS COUNTED 100 #CELLS
[2018-12-27 07:39] LABS: PLATELET SUFFICIENCY LOW (NORMAL)
[2018-12-27 08:00] VITALS: BP 108/58
[2018-12-27 10:09] LABS: HEPATITIS B SURFACE AG Negative (Negative); HEPATITIS C VIRUS ANTIBODY <0.1 s/co (0.0-0.9)
[2018-12-27] MEDS ORDERED: TAMIFLU 75MG CA75 MG PO (11:39)
--- NOTE | 2018-12-27 12:21 | NUR ---
Discharge instructions reviewed with patient. Patient receptive and verbalizes understanding. Follow-up care arranged. Written instructions given to patient. LETITIA GOOD
--- NOTE | 2018-12-27 12:21 | NUR ---
ADMINISTERED MILK OF MAGNESIA FOR C/O CONSTIPATION.
--- NOTE | 2018-12-27 13:08 | NUR ---
PATIENT DISCHARGED TO [facility], AMBULATORY WITH FAMILY FOR TRANSPORT HOME BY PRIVATE VEHICLE.
== END 2018-12-27 13:08 | disposition home or self-care (01) | DRG 194 ==
LOC: 5E 16:35
PROVIDERS: Internal Medicine; Internal Medicine Critical Care Medicine; ADMIT Internal Medicine
DX: J10.08 Influenza due to other identified influenza virus with other specified pneumonia (principal); F33.1 Major depressive disorder, recurrent, moderate; D61.818 Other pancytopenia; J12.9 Viral pneumonia, unspecified; K75.9 Inflammatory liver disease, unspecified; K21.0 Gastro-esophageal reflux disease with esophagitis; F41.1 Generalized anxiety disorder; Z87.01 Personal history of pneumonia (recurrent)

== ENCOUNTER → 2020-11-13 | Outpatient (CLI) | payer OTHER ==
[~2020-11-13] MED LIST changes: +TAMIFLU 75MG CA75 MG PO
== END | disposition home or self-care (01) ==
LOC: COVID19 14:56
PROVIDERS: ATTEND Family Medicine
DX: U07.1 COVID-19 (principal)

== ENCOUNTER → 2021-01-14 | Outpatient (CLI) | payer OTHER ==
[2021-01-14 08:53] LABS: HEMATOCRIT 42.8 % (37.0-47.0); MEAN CELL VOLUME 86.8 fl (81.0-99.0); MEAN CORPUSCULAR HGB 28.4 pg (27.0-31.0); MEAN CORPUSCULAR HGB CONC 32.7 g/dl (33.0-37.0); MEAN PLATELET VOLUME 9.8 fl (9.6-12.3); RED BLOOD COUNT 4.93 10*6/uL (4.10-5.10); RED CELL DISTRI WIDTH 12.2 % (0-14.5); WHITE BLOOD COUNT 5.3 10*3/uL (4.8-10.8)
[2021-01-14 09:19] LABS: ALKALINE PHOSPHATASE 78 U/L (45-117); BUN 9 mg/dl (7-24); CHLORIDE 109 mmol/L (98-107); CHOLESTEROL 116 mg/dL (<200); HDL CHOLESTEROL 51 mg/dl (40-60); LDL CHOLESTEROL 51 mg/dL (9-159); POTASSIUM 4.1 mmol/L (3.5-5.1); SGOT/AST 10 IU/L (3-35); SGPT/ALT 13 U/L (12-78); SODIUM 140 mmol/L (136-145); TOTAL PROTEIN 7.3 gm/dL (6.4-8.2); TRIGLYCERIDES 72 mg/dl (<150); VLDL CHOLESTEROL 14 mg/dL (6-40)
== END | disposition home or self-care (01) ==
LOC: LAB 08:29
PROVIDERS: ATTEND Nurse Practitioner Family
DX: Z13.220 Encounter for screening for lipoid disorders (principal); R59.0 Localized enlarged lymph nodes

== ENCOUNTER → 2021-04-30 | Outpatient (CLI) | payer OTHER ==
[2021-04-30 11:45] LABS: HEMATOCRIT 44.4 % (37.0-47.0); MEAN CELL VOLUME 87.4 fl (81.0-99.0); MEAN CORPUSCULAR HGB 28.3 pg (27.0-31.0); MEAN CORPUSCULAR HGB CONC 32.4 g/dl (33.0-37.0); MEAN PLATELET VOLUME 9.9 fl (9.6-12.3); RED BLOOD COUNT 5.08 10*6/uL (4.10-5.10); WHITE BLOOD COUNT 7.1 10*3/uL (4.8-10.8)
[2021-04-30 12:22] LABS: ALBUMIN 4.2 gm/dl (3.1-4.5); ALKALINE PHOSPHATASE 81 U/L (45-117); BUN 7 mg/dl (7-24); CHLORIDE 106 mmol/L (98-107); CHOLESTEROL 131 mg/dL (<200); CREATININE 0.87 mg/dL (0.55-1.02); LDL CHOLESTEROL 60 mg/dL (9-159); POTASSIUM 4.1 mmol/L (3.5-5.1); SGOT/AST 11 IU/L (3-35); SGPT/ALT 16 U/L (12-78); SODIUM 139 mmol/L (136-145); TOTAL PROTEIN 7.6 gm/dL (6.4-8.2); TRIGLYCERIDES 103 mg/dl (<150)
[2021-04-30 12:53] LABS: VITAMIN D, 25-HYDROXY 34.1 ng/mL (30-100)
== END | disposition home or self-care (01) ==
LOC: LAB 11:24
PROVIDERS: ATTEND Family Medicine
DX: Z13.220 Encounter for screening for lipoid disorders (principal); R53.83 Other fatigue; R42 Dizziness and giddiness; R63.5 Abnormal weight gain; E55.9 Vitamin D deficiency, unspecified

== ENCOUNTER 2021-05-09 21:04 | Emergency (ER) | payer OTHER ==
[~2021-05-09] VITALS: Ht 170.1 cm; Wt 70.8 kg
[2021-05-09 21:29] LABS: BASO % 0.5 % (0.0-1.0); EOS # 0.2 10*3/uL (0.0-0.4); HEMATOCRIT 40.8 % (37.0-47.0); LYMPH # 2.7 10*3/uL (1.3-4.4); LYMPH % 30.5 % (27.0-41.0); MEAN CELL VOLUME 86.6 fl (81.0-99.0); MEAN CORPUSCULAR HGB 28.2 pg (27.0-31.0); MEAN CORPUSCULAR HGB CONC 32.6 g/dl (33.0-37.0); MEAN PLATELET VOLUME 9.6 fl (9.6-12.3); MONO # 0.8 10*3/uL (0.1-1.0); MONO % 9.5 % (3.0-9.0); NEUT # 5.1 10*3/uL (2.3-7.9); NEUT % 57.4 % (47.0-73.0); PLATELET COUNT AUTOMATED 202 10*3/uL (130-400); RED BLOOD COUNT 4.71 10*6/uL (4.10-5.10); WHITE BLOOD COUNT 8.9 10*3/uL (4.8-10.8)
[2021-05-09 21:42] LABS: BILIRUBIN Negative (Negative); BLOOD Negative (Negative); CLARITY Clear (Clear); COLOR Yellow (Yellow); GLUCOSE Negative (Negative); KETONE Negative (Negative); LEUKO ESTERASE Negative (Negative); NITRITE Negative (Negative); PH 6.5 (4.5-8.0); SPECIFIC GRAVITY <= 1.005 (1.001-1.030); UROBILINOGEN 0.2 E.U./dl (0.0-1.0)
[2021-05-09 21:46] LABS: ALKALINE PHOSPHATASE 76 U/L (45-117); BUN 9 mg/dl (7-24); CHLORIDE 111 mmol/L (98-107); CREATININE 0.81 mg/dL (0.55-1.02); POTASSIUM 3.3 mmol/L (3.5-5.1); SGOT/AST 18 IU/L (3-35); SGPT/ALT 20 U/L (12-78); SODIUM 137 mmol/L (136-145); TOTAL PROTEIN 7.5 gm/dL (6.4-8.2)
[2021-05-09 21:47] LABS: TROPONIN I < 0.015 ng/ml (<0.045)
[2021-05-09 21:50] LABS: BACTERIA TRACE; RBC 0-2 rbc/hpf (0-2); WBC 0-2 wbc/hpf (0-5)
[2021-05-09] MEDS ORDERED: VISTARIL25 M2 PO (22:48)
== END 2021-05-09 22:58 | disposition home or self-care (01) ==
LOC: ED 21:04
PROVIDERS: Emergency Medicine; Physician Assistant
DX: F41.9 Anxiety disorder, unspecified (principal); K21.9 Gastro-esophageal reflux disease without esophagitis; F32.9 Major depressive disorder, single episode, unspecified; Z88.0 Allergy status to penicillin; Z88.1 Allergy status to other antibiotic agents; Z79.899 Other long term (current) drug therapy

== ENCOUNTER → 2021-06-04 | Outpatient (CLI) | payer OTHER ==
[~2021-06-04] MED LIST changes: +VISTARIL25 M2 PO
== END | disposition home or self-care (01) ==
LOC: CARD 13:00
PROVIDERS: ATTEND Internal Medicine Cardiovascular Disease
DX: I34.1 Nonrheumatic mitral (valve) prolapse (principal); R00.2 Palpitations; R06.02 Shortness of breath

== ENCOUNTER 2021-12-13 06:41 | Emergency (ER) | payer OTHER ==
[~2021-12-13] VITALS: Ht 152.4 cm; Wt 74.8 kg
[2021-12-13 07:06] LABS: BASO % 0.2 % (0.0-1.0); EOS # 0.1 10*3/uL (0.0-0.4); EOS % 0.7 % (1.0-4.0); HEMATOCRIT 38.9 % (37.0-47.0); LYMPH # 1.4 10*3/uL (1.3-4.4); LYMPH % 15.8 % (27.0-41.0); MEAN CELL VOLUME 83.8 fl (81.0-99.0); MEAN CORPUSCULAR HGB 28.2 pg (27.0-31.0); MEAN CORPUSCULAR HGB CONC 33.7 g/dl (33.0-37.0); MEAN PLATELET VOLUME 9.4 fl (9.6-12.3); MONO # 0.7 10*3/uL (0.1-1.0); MONO % 8.2 % (3.0-9.0); NEUT # 6.4 10*3/uL (2.3-7.9); NEUT % 74.9 % (47.0-73.0); PLATELET COUNT AUTOMATED 204 10*3/uL (130-400); RED BLOOD COUNT 4.64 10*6/uL (4.10-5.10); RED CELL DISTRI WIDTH 12.3 % (0-14.5); WHITE BLOOD COUNT 8.5 10*3/uL (4.8-10.8)
[2021-12-13 07:17] LABS: ACT PARTIAL THROMBO TIME 28.5 SECONDS (20.0-32.1)
[2021-12-13 07:20] LABS: ALKALINE PHOSPHATASE 69 U/L (45-117); BUN 7 mg/dl (7-24); CHLORIDE 110 mmol/L (98-107); CREATININE 0.74 mg/dL (0.55-1.02); SGOT/AST 36 IU/L (3-35); SGPT/ALT 22 U/L (12-78); SODIUM 140 mmol/L (136-145)
[2021-12-13] MEDS ORDERED: ZOFRAN4 MG PO (07:56)
[2021-12-13] MEDS ORDERED: PRILOSEC20 M1 PO (07:56)
== END 2021-12-13 08:12 | disposition home or self-care (01) ==
LOC: ED 06:41
PROVIDERS: Emergency Medicine
DX: R11.2 Nausea with vomiting, unspecified (principal); K21.9 Gastro-esophageal reflux disease without esophagitis; Z88.0 Allergy status to penicillin; Z88.1 Allergy status to other antibiotic agents

== ENCOUNTER 2022-10-02 22:18 | Emergency (ER) | payer BC ==
[~2022-10-02] VITALS: Ht 177.8 cm; Wt 75.3 kg
[~2022-10-02 22:18] MED LIST changes: +PRILOSEC20 M1 PO
== END 2022-10-03 01:05 | disposition home or self-care (01) ==
LOC: ED 22:18
DX: T50.905A Adverse effect of unspecified drugs, medicaments and biological substances, initial encounter (principal); F22 Delusional disorders; Z88.0 Allergy status to penicillin; Z88.1 Allergy status to other antibiotic agents; Y92.89 Other specified places as the place of occurrence of the external cause

== ENCOUNTER 2022-12-15 19:51 | Emergency (ER) | payer BC ==
[~2022-12-15] VITALS: Ht 170.1 cm; Wt 77.1 kg
[2022-12-15 21:26] LABS: BASO # 0.1 10*3/uL (0.0-0.1); BASO % 0.7 % (0.0-1.0); EOS # 0.4 10*3/uL (0.0-0.4); EOS % 4.5 % (1.0-4.0); HEMATOCRIT 39.4 % (37.0-47.0); LYMPH # 2.5 10*3/uL (1.3-4.4); MEAN CELL VOLUME 86.6 fl (81.0-99.0); MEAN CORPUSCULAR HGB 28.4 pg (27.0-31.0); MEAN CORPUSCULAR HGB CONC 32.7 g/dl (33.0-37.0); MEAN PLATELET VOLUME 9.5 fl (9.6-12.3); MONO # 0.7 10*3/uL (0.1-1.0); MONO % 8.1 % (3.0-9.0); NEUT # 5.2 10*3/uL (2.3-7.9); NEUT % 58.5 % (47.0-73.0); PLATELET COUNT AUTOMATED 205 10*3/uL (130-400); RED BLOOD COUNT 4.55 10*6/uL (4.10-5.10); RED CELL DISTRI WIDTH 12.2 % (0-14.5); WHITE BLOOD COUNT 8.9 10*3/uL (4.8-10.8)
[2022-12-15 21:41] LABS: ALKALINE PHOSPHATASE 63 U/L (46-116); BUN 10 mg/dl (9-23); CHLORIDE 107 mmol/L (98-107); POTASSIUM 3.7 mmol/L (3.4-5.1); SGPT/ALT 8 U/L (10-49); TOTAL PROTEIN 6.5 gm/dL (6.0-8.0)
== END 2022-12-15 22:53 | disposition home or self-care (01) ==
LOC: ED 19:51
PROVIDERS: Emergency Medicine
DX: R23.3 Spontaneous ecchymoses (principal); R21 Rash and other nonspecific skin eruption; K21.9 Gastro-esophageal reflux disease without esophagitis; Z88.0 Allergy status to penicillin; Z88.1 Allergy status to other antibiotic agents

== ENCOUNTER 2022-12-26 22:20 | Emergency (ER) | payer BC ==
[~2022-12-26] VITALS: Ht 170.1 cm; Wt 72.6 kg
[2022-12-26 23:25] LABS: BASO % 0.2 % (0.0-1.0); EOS # 0.1 10*3/uL (0.0-0.4); EOS % 0.6 % (1.0-4.0); HEMATOCRIT 46.5 % (37.0-47.0); LYMPH # 0.7 10*3/uL (1.3-4.4); LYMPH % 5.6 % (27.0-41.0); MEAN CELL VOLUME 85.5 fl (81.0-99.0); MEAN CORPUSCULAR HGB 28.9 pg (27.0-31.0); MEAN CORPUSCULAR HGB CONC 33.8 g/dl (33.0-37.0); MEAN PLATELET VOLUME 9.4 fl (9.6-12.3); MONO # 0.6 10*3/uL (0.1-1.0); MONO % 4.7 % (3.0-9.0); NEUT # 11.1 10*3/uL (2.3-7.9); NEUT % 88.7 % (47.0-73.0); PLATELET COUNT AUTOMATED 224 10*3/uL (130-400); RED BLOOD COUNT 5.44 10*6/uL (4.10-5.10); RED CELL DISTRI WIDTH 12.1 % (0-14.5); WHITE BLOOD COUNT 12.5 10*3/uL (4.8-10.8)
[2022-12-26 23:39] LABS: ALKALINE PHOSPHATASE 72 U/L (46-116); BUN 13 mg/dl (9-23); CHLORIDE 106 mmol/L (98-107); LIPASE 43 U/L (12-53); SGPT/ALT 11 U/L (10-49); TOTAL PROTEIN 7.9 gm/dL (6.0-8.0)
[2022-12-27] MEDS ORDERED: Ondansetron4 MG PO (00:26)
== END 2022-12-27 00:50 | disposition home or self-care (01) ==
LOC: ED 22:20
PROVIDERS: Emergency Medicine
DX: R11.2 Nausea with vomiting, unspecified (principal); R19.7 Diarrhea, unspecified; Z88.0 Allergy status to penicillin; Z88.1 Allergy status to other antibiotic agents; Z98.890 Other specified postprocedural states; Z20.822 Contact with and (suspected) exposure to COVID-19

== ENCOUNTER 2023-03-24 23:43 | Emergency (ER) | payer BC ==
[~2023-03-24] VITALS: Ht 167.6 cm; Wt 77.1 kg
[~2023-03-24 23:43] MED LIST changes: +Ondansetron4 MG PO
[2023-03-25 00:31] LABS: BASO # 0.1 10*3/uL (0.0-0.1); BASO % 1.1 % (0.0-1.0); EOS # 0.1 10*3/uL (0.0-0.4); EOS % 2.7 % (1.0-4.0); HEMATOCRIT 38.1 % (37.0-47.0); LYMPH # 1.4 10*3/uL (1.3-4.4); LYMPH % 32.6 % (27.0-41.0); MEAN CELL VOLUME 86.2 fl (81.0-99.0); MEAN CORPUSCULAR HGB 28.5 pg (27.0-31.0); MEAN CORPUSCULAR HGB CONC 33.1 g/dl (33.0-37.0); MEAN PLATELET VOLUME 9.3 fl (9.6-12.3); MONO # 0.4 10*3/uL (0.1-1.0); NEUT # 2.4 10*3/uL (2.3-7.9); NEUT % 53.4 % (47.0-73.0); PLATELET COUNT AUTOMATED 180 10*3/uL (130-400); RED BLOOD COUNT 4.42 10*6/uL (4.10-5.10); RED CELL DISTRI WIDTH 11.9 % (0-14.5); WHITE BLOOD COUNT 4.4 10*3/uL (4.8-10.8)
[2023-03-25 00:54] LABS: BUN 6 mg/dl (9-23); CHLORIDE 108 mmol/L (98-107); POTASSIUM 3.7 mmol/L (3.4-5.1)
== END 2023-03-25 01:20 | disposition home or self-care (01) ==
LOC: ED 23:43
PROVIDERS: Internal Medicine
DX: R59.0 Localized enlarged lymph nodes (principal); R51.9 Headache, unspecified; R53.83 Other fatigue; K21.9 Gastro-esophageal reflux disease without esophagitis; F41.9 Anxiety disorder, unspecified; F32.A Depression, unspecified; Z88.0 Allergy status to penicillin; Z88.1 Allergy status to other antibiotic agents; Z98.890 Other specified postprocedural states

== ENCOUNTER 2023-10-23 02:53 | Emergency (ER) | payer BC ==
[2023-10-23] MEDS ORDERED: OMNICEF300 MG PO (03:10)
== END 2023-10-23 03:25 | disposition home or self-care (01) ==
LOC: ED 02:53
DX: J02.0 Streptococcal pharyngitis (principal); K21.9 Gastro-esophageal reflux disease without esophagitis; F41.9 Anxiety disorder, unspecified; F32.A Depression, unspecified; Z88.0 Allergy status to penicillin; Z88.1 Allergy status to other antibiotic agents; Z98.890 Other specified postprocedural states

== ENCOUNTER 2023-12-15 07:23 | Emergency (ER) | payer BC ==
[~2023-12-15] VITALS: Ht 170.1 cm; Wt 72.6 kg
[~2023-12-15 07:23] MED LIST changes: +OMNICEF300 MG PO
[2023-12-15] MEDS ORDERED: CYCLOBENZAPRINE5 M3 PO (07:51)
== END 2023-12-15 08:33 | disposition home or self-care (01) ==
LOC: ED 07:23
DX: M62.838 Other muscle spasm (principal); K21.9 Gastro-esophageal reflux disease without esophagitis; F41.9 Anxiety disorder, unspecified; F32.A Depression, unspecified; Z88.0 Allergy status to penicillin; Z88.1 Allergy status to other antibiotic agents; Z98.890 Other specified postprocedural states

== ENCOUNTER 2024-04-09 18:06 | Emergency (ER) | payer BC ==
[~2024-04-09] VITALS: Ht 170.1 cm; Wt 73.9 kg
[~2024-04-09 18:06] MED LIST changes: +CYCLOBENZAPRINE5 M3 PO
[2024-04-09] MEDS ORDERED: LORazepam 1 MG TAB PO ONE (18:25)
[2024-04-09 18:39] LABS: BASO % 0.4 % (0.0-1.0); EOS # 0.1 10*3/uL (0.0-0.4); EOS % 1.5 % (1.0-4.0); HEMATOCRIT 40.4 % (37.0-47.0); LYMPH # 1.5 10*3/uL (1.3-4.4); LYMPH % 15.6 % (27.0-41.0); MEAN CELL VOLUME 87.8 fl (81.0-99.0); MEAN CORPUSCULAR HGB 29.1 pg (27.0-31.0); MEAN CORPUSCULAR HGB CONC 33.2 g/dl (33.0-37.0); MONO # 0.7 10*3/uL (0.1-1.0); MONO % 6.9 % (3.0-9.0); NEUT # 7.1 10*3/uL (2.3-7.9); NEUT % 75.3 % (47.0-73.0); PLATELET COUNT AUTOMATED 208 10*3/uL (130-400); RED CELL DISTRI WIDTH 12.4 % (0-14.5); WHITE BLOOD COUNT 9.4 10*3/uL (4.8-10.8)
[2024-04-09 18:57] LABS: BUN 8 mg/dl (9-23); CHLORIDE 108 mmol/L (98-107); POTASSIUM 3.3 mmol/L (3.4-5.1)
== END 2024-04-09 20:15 | disposition home or self-care (01) ==
LOC: ED 18:06
PROVIDERS: Physician Assistant Medical
DX: F41.0 Panic disorder [episodic paroxysmal anxiety] (principal); F41.9 Anxiety disorder, unspecified; F32.A Depression, unspecified; K21.9 Gastro-esophageal reflux disease without esophagitis; Z88.0 Allergy status to penicillin; Z88.1 Allergy status to other antibiotic agents; Z98.890 Other specified postprocedural states; Z90.49 Acquired absence of other specified parts of digestive tract

== ENCOUNTER 2024-12-22 09:01 | Emergency (ER) | payer BC ==
[~2024-12-22] VITALS: Ht 170.1 cm; Wt 79.4 kg
[2024-12-22] MEDS ORDERED: LAMICTAL XR300 M1 PO (09:25)
[2024-12-22] MEDS ORDERED: diazePAM 10 MG/2 ML SYR IM ONE (09:35)
[2024-12-22] MEDS ORDERED: Ketorolac Tromethamine 30 MG/ML VIAL IM ONE (09:35)
[2024-12-22] MEDS ORDERED: CYCLOBENZAPRINE10 MG PO (10:50)
[2024-12-22] MEDS ORDERED: MELOXICAM15 MG PO (10:50)
[2024-12-23] MEDS ORDERED: METHOCARBAMOL750 M1 PO (06:25)
== END 2024-12-22 10:55 | disposition home or self-care (01) ==
LOC: ED 09:01
DX: M43.6 Torticollis (principal); Z88.0 Allergy status to penicillin; Z88.1 Allergy status to other antibiotic agents

== ENCOUNTER 2024-12-23 05:00 | Emergency (ER) | payer BC ==
[~2024-12-23] VITALS: Ht 170.1 cm; Wt 79.4 kg
[~2024-12-23 05:00] MED LIST changes: +CYCLOBENZAPRINE10 MG PO; +LAMICTAL XR300 M1 PO; +MELOXICAM15 MG PO
[2024-12-23] MEDS ORDERED: diazePAM 10 MG/2 ML SYR IV ONE (05:50)
[2024-12-23] MEDS ORDERED: METHOCARBAMOL750 M1 PO (06:25)
== END 2024-12-23 06:32 | disposition home or self-care (01) ==
LOC: ED 05:00
DX: M43.6 Torticollis (principal); K21.9 Gastro-esophageal reflux disease without esophagitis; F41.9 Anxiety disorder, unspecified; F32.A Depression, unspecified; Z88.0 Allergy status to penicillin; Z88.1 Allergy status to other antibiotic agents; Z98.890 Other specified postprocedural states; Z90.49 Acquired absence of other specified parts of digestive tract

== ENCOUNTER 2024-12-29 21:37 | Emergency (ER) | payer BC ==
[~2024-12-29] VITALS: Ht 175.2 cm; Wt 77.1 kg
[~2024-12-29 21:37] MED LIST changes: +METHOCARBAMOL750 M1 PO
[2024-12-29] MEDS ORDERED: ACETAMINOPHEN 325 MG TAB PO ONE (22:00)
[2024-12-29] MEDS ORDERED: TAMIFLU 75MG CA75 MG PO (22:48)
[2024-12-29] MEDS ORDERED: Oseltamivir Phosphate 75 MG CAP PO ONE (22:50)
== END 2024-12-29 22:52 | disposition home or self-care (01) ==
LOC: ED 21:37
DX: R05.9 Cough, unspecified (principal); R09.81 Nasal congestion; R51.9 Headache, unspecified; K21.9 Gastro-esophageal reflux disease without esophagitis; F32.A Depression, unspecified; F41.9 Anxiety disorder, unspecified; Z79.899 Other long term (current) drug therapy; Z88.0 Allergy status to penicillin; Z88.1 Allergy status to other antibiotic agents; Z20.822 Contact with and (suspected) exposure to COVID-19

== ENCOUNTER 2025-03-15 22:08 | Emergency (ER) | payer BC ==
[~2025-03-15] VITALS: Ht 170.1 cm; Wt 77.1 kg
[2025-03-15] MEDS ORDERED: LEVETIRACETAM250 MG PO (22:23)
[2025-03-15 23:39] LABS: BASO % 0.2 % (0.0-1.0); EOS # 0.2 10*3/uL (0.0-0.4); EOS % 2.2 % (1.0-4.0); HEMATOCRIT 38.6 % (37.0-47.0); MEAN CELL VOLUME 87.1 fl (81.0-99.0); MEAN CORPUSCULAR HGB 28.9 pg (27.0-31.0); MEAN CORPUSCULAR HGB CONC 33.2 g/dl (33.0-37.0); MONO # 0.8 10*3/uL (0.1-1.0); MONO % 8.5 % (3.0-9.0); NEUT # 6.4 10*3/uL (2.3-7.9); NEUT % 70.5 % (47.0-73.0); PLATELET COUNT AUTOMATED 198 10*3/uL (130-400); RED BLOOD COUNT 4.43 10*6/uL (4.10-5.10); RED CELL DISTRI WIDTH 12.3 % (0-14.5); WHITE BLOOD COUNT 9.1 10*3/uL (4.8-10.8)
[2025-03-16 00:04] LABS: ALKALINE PHOSPHATASE 68 U/L (46-116); BETA-HCG, QUANT < 3.0 mIU/mL (3-10); BUN 9 mg/dl (9-23); CHLORIDE 106 mmol/L (98-107); SGPT/ALT 21 U/L (5-49); TOTAL PROTEIN 6.4 gm/dL (6.0-8.0)
[2025-03-16] MEDS ORDERED: MIRALAX POWDER17 G1 PO (01:45)
== END 2025-03-16 01:46 | disposition home or self-care (01) ==
LOC: ED 22:08
PROVIDERS: Internal Medicine
DX: K59.00 Constipation, unspecified (principal); R10.2 Pelvic and perineal pain; K21.9 Gastro-esophageal reflux disease without esophagitis; F32.A Depression, unspecified; F41.9 Anxiety disorder, unspecified; Z79.899 Other long term (current) drug therapy; Z88.0 Allergy status to penicillin; Z88.1 Allergy status to other antibiotic agents; Z98.890 Other specified postprocedural states

== ENCOUNTER 2025-10-30 22:05 | Emergency (ER) | payer BC ==
[~2025-10-30] VITALS: Ht 170.2 cm; Wt 73.9 kg
[~2025-10-30 22:05] MED LIST changes: +LEVETIRACETAM250 MG PO; +MIRALAX POWDER17 G1 PO
[2025-10-30 23:59] LABS: BASO # 0.0 10*3/uL (0.0-0.1); BASO % 0.5 % (0.0-1.0); EOS # 0.3 10*3/uL (0.0-0.4); EOS % 3.4 % (1.0-4.0); MEAN CELL VOLUME 86.7 fl (81.0-99.0); MEAN CORPUSCULAR HGB 28.8 pg (27.0-31.0); MEAN PLATELET VOLUME 8.9 fl (9.6-12.3); MONO # 0.8 10*3/uL (0.1-1.0); MONO % 9.9 % (3.0-9.0); NEUT # 4.6 10*3/uL (2.3-7.9); NEUT % 60.2 % (47.0-73.0); NUCLEATED RED BLOOD CELL 0.0 % (0.0-0.0); NUCLEATED RED BLOOD CELL 0.0 10*3/uL (0.0-0.0); PLATELET COUNT AUTOMATED 222 10*3/uL (130-400); RED CELL DISTRI WIDTH 11.9 % (0-14.5)
[2025-10-31 00:17] LABS: BUN 10 mg/dl (9-23)
[2025-10-31] MEDS ORDERED: ZITHROMAX250 MG PO (01:57)
[2025-10-31] MEDS ORDERED: MUCINEX D ER 61 EACH PO (01:57)
[2025-10-31] MEDS ORDERED: AZITHROMYCIN 250 MG TAB PO ONE (02:30)
[2025-10-31] MEDS ORDERED: ALBUTEROL 8 GM INHALER INH ONE (02:30)
[2025-10-31] MEDS ORDERED: GUAIFENESIN 600 MG TAB ER PO SCH (10:00)
== END 2025-10-31 02:42 | disposition home or self-care (01) ==
LOC: ED 22:05
PROVIDERS: Emergency Medicine
DX: J06.9 Acute upper respiratory infection, unspecified (principal); R05.9 Cough, unspecified; J40 Bronchitis, not specified as acute or chronic; F41.9 Anxiety disorder, unspecified; K21.9 Gastro-esophageal reflux disease without esophagitis; Z88.0 Allergy status to penicillin; Z88.8 Allergy status to other drugs, medicaments and biological substances; Z87.440 Personal history of urinary (tract) infections